=== PATIENT | female | born 1955 | race Caucasian/White ===

== ENCOUNTER 2021-07-18 14:56 | Inpatient (IN) | payer MEDICARE ==
[2021-07-19] MEDS ORDERED: MELATONIN 5 MG TAB PO PRN (22:10)
--- NOTE | 2021-07-20 09:36 | History and Physical Report ---
GP History & Physical - History of Present Illness Date of admission: 07/19/21 Date of Examination: 07/20/21 Reason for Admission: Danger to self, Failure of Outpatient Treatment, Severe anxiety/depression History of Present Illness: The patient was seen today. She is a 66y/o female who was admitted for depression, not eating or drinking and talking to people. During my evaluation of the patient, she is calm and cooperative. She has poor insight. She says her passed in April and she's been having a hard time dealing with it. She says she's been very depressed and not eating well. The patient then says "but I just don't know why I'm here." She is slightly tearful. She says she's sees a psychiatrist but she could not tell me her diagnoses or if she was on any meds. She denies SI/HI, but states "just real bad depressed." She denies hallucinations. The patient also denies any illicit drug use, alcohol or nicotine. The patient says she has two sons. She says she plans to live with them for a little while after discharge then go back to her own home. PAST PSYCHIATRIC HISTORY Diagnoses: could not recall Suicide attempts or Self-harm behavior: Denies Prior psychiatric hospitalizations: Denies Substance Abuse history: Denies Previous psychiatric medications tried: could not recall Outpatient treatment: Yes PAST MEDICAL HISTORY: Family Psychiatric History: Not available SOCIAL HISTORY Marital Status: Living Arrangements: Lives alone Employment Status: Retired Access to guns/weapons: None reported Education: History of Abuse: None reported Legal History: None reported REVIEW OF SYSTEMS Constitutional: Negative for weight loss ENT: Negative for stridor Respiratory: Negative for cough or hemoptysis All other systems reviewed and are negative MENTAL STATUS EXAMINATION General Appearance and Behavior: Age appropriate, good hygiene, wearing appropriate clothes, good eye contact, cooperative polite with questioning. Cooperation: Participating/engaged Psychomotor Behavior: unremarkable and within normal limits Mood: Depressed Affect and affective range: congruent with mood Thought Process: Goal oriented Thought Content: hopelessness Speech: Normal volume, Regular rate and rhythm Suicidal Ideation: Denies Homicidal Ideation: Denies Hallucinations: Visual guest experience captain, denies at present Impulse Control: Normal Insight and Judgment: Poor insight and good judgment Memory: Limited Attention: attentive Orientation: Alert, oriented 3 Assessment and Plan (1) Major depressive disorder Current Visit: Yes Status: Acute Treatment Plan Patient admitted for inpatient psychiatric evaluation, medication adjustment and close monitoring The patient's behavior, mood, sleep and appetite will be closely monitored. Patient enrolled in individual and group therapeutic sessions and encouraged to attend. Patient provided with a safe and structured environment. Patient's physical health needs will be addressed by the Hospitalist. Hospitalist Consulted Labs including CBC, CMP, Lipid profile and Hemoglobin A1C levels ordered for baseline reference Social Assessment will be completed and the Snath Handle Assembler will work with patient and family to ensure a suitable and safe disposition Medication adjustment will be made as clinically indicated Restarted home medications Usual Wellness Evangelical/Preservation: - Start Trazodone 50 mg po QHS & 50 mg po QHS PRN between 10 PM & 2 AM for insomnia - Start Melatonin 5 mg po QHS to promote circadian rhythm The patient agreed on the treatment plan, understood the risk, benefit, alternative treatment, potential consequence of no treatment, and gave informed consent. Estimated days: Post hospital care: primary care provider, psychiatric provider Case staffed with Dr. Spencer Legal Status: Voluntary Reaction to Hospitalization: Accepting Medications and Allergies Allergies Allergy/AdvReac Type Severity Reaction Status Date / Time No Known Allergies Allergy Verified 07/19/21 19:15 Home Medications Medication Instructions Recorded Confirmed Last Taken Type Amitriptyline [Elavil] 75 mg PO DAILY 07/19/21 07/19/21 Unknown History Carisoprodol [Soma] 350 mg PO 4XD 07/19/21 07/19/21 Unknown History Cyclobenzaprine [Flexeril] 10 mg PO TID PRN 07/19/21 07/19/21 Unknown History DULoxetine [Cymbalta] 60 mg PO QDAY 07/19/21 07/19/21 Unknown History Diclofenac Sodium 75 mg PO BID 07/19/21 07/19/21 Unknown History FLUoxetine [PROzac] 20 mg PO QDAY 07/19/21 07/19/21 Unknown History Levothyroxine [Synthroid] 112 mcg PO QAM 07/19/21 07/19/21 Unknown History Temazepam 30 mg PO HS PRN 07/19/21 07/19/21 Unknown History cephALEXin [Keflex] 500 mg PO Q8HR 07/19/21 07/19/21 Unknown History traMADoL [Ultram 50 MG tab] 50 mg PO BID PRN 07/19/21 07/19/21 Unknown History Active Meds: Active Medications Cephalexin (Cephalexin 500 Mg Cap) 500 mg PO Q8H [facility]; Protocol Melatonin (Melatonin 5 Mg Tab) 5 mg PO QHS PRN PRN Reason: Sleep Results - Results Labs/Vitals: Laboratory Last Values POC Glucose 72 mg/dL (70-105) 07/19/21 15:17 Last Vital Signs Temp 98.5 F 07/19/21 22:00 Pulse 88 07/19/21 22:00 Resp 18 07/19/21 09:15 BP 153/84 07/19/21 22:00 Pulse Ox 93 07/19/21 09:15 Physical Examination - Constitutional Vitals: Vital Signs Temp Pulse Resp BP Pulse Ox 98.5 F 88 18 153/84 93 07/19/21 22:00 07/19/21 22:00 07/19/21 09:15 07/19/21 22:00 07/19/21 09:15 Temperature -Last 24 Hours Temperature 98.5 F Mental Status Exam - Vital signs Last Vital Signs Temp 98.5 F 07/19/21 22:00 Pulse 88 07/19/21 22:00 Resp 18 07/19/21 09:15 BP 153/84 07/19/21 22:00 Pulse Ox 93 07/19/21 09:15 Physician Certification - Certification Statement Physician Certification Statement: This is an acknowledgement statement that ALEXA IZAGUIRRE is a 66 year old F who requires inpatient psychiatric admission for treatment which could reasonably be expected to improve the patient's condition for Estimated period of time patient will need to remain in the hospital: [ ] Plan for post-hospital care: [ ]
[2021-07-20] MEDS ORDERED: CYCLOBENZAPRINE 10 MG TAB PO PRN (09:40)
[2021-07-20] MEDS ORDERED: TEMAZEPAM 30 MG PO PRN (09:40)
[2021-07-20] MEDS: cephALEXin 500 MG CAP PO SCH ×2 (09:41→18:21)
[2021-07-20] MEDS ORDERED: AMITRIPTYLINE 75 MG PO SCH (10:00)
[2021-07-20] MEDS ORDERED: traMADol 50 MG TAB PO PRN (11:00)
[2021-07-20] MEDS ORDERED: DICLOFENAC DR 75 MG TAB PO SCH (11:00)
[2021-07-20] MEDS ORDERED: CARISOPRODOL 350 MG TAB PO SCH (11:00)
[2021-07-20] MEDS: AMITRIPTYLINE 25 MG TAB PO SCH (11:06)
[2021-07-20] MEDS: LEVOTHYROXINE 112 MCG TAB PO SCH (11:06)
[2021-07-20] MEDS: DULoxetine 30 MG CAP PO SCH (11:09)
[2021-07-20] MEDS: FLUoxetine 20 MG CAP PO SCH (11:09)
[2021-07-20] MEDS: DICLOFENAC DR 75 MG TAB PO PRN (11:19)
[2021-07-20] MEDS ORDERED: CARISOPRODOL 350 MG TAB PO PRN (12:00)
[2021-07-20] MEDS ORDERED: cephALEXin 500 MG CAP PO SCH (14:00)
[2021-07-21] MEDS: cephALEXin 500 MG CAP PO SCH ×3 (02:41→17:48)
[2021-07-21] MEDS: DULoxetine 30 MG CAP PO SCH (09:26)
[2021-07-21] MEDS: AMITRIPTYLINE 25 MG TAB PO SCH (09:27)
[2021-07-21] MEDS: FLUoxetine 20 MG CAP PO SCH (09:27)
[2021-07-21] MEDS: LEVOTHYROXINE 112 MCG TAB PO SCH (09:30)
--- NOTE | 2021-07-21 09:58 | Progress Note ---
Subjective Date of service: 07/21/21 Principal diagnosis: acute psychosis Subjective Comment: The patient was seen today. She is smiling and appears to be responding to internal stimuli. She denies hallucinations. She denies SI/HI. The patient says she slept well. The staff says the patient has been talking to herself. REVIEW OF SYSTEMS Constitutional: Negative for weight loss ENT: Negative for stridor Respiratory: Negative for cough or hemoptysis All other systems reviewed and are negative MENTAL STATUS EXAMINATION General Appearance and Behavior: Age appropriate, good hygiene, wearing appropriate clothes, good eye contact, cooperative polite with questioning. Cooperation: Participating/engaged Psychomotor Behavior: unremarkable and within normal limits Mood: Depressed Affect and affective range: congruent with mood Thought Process: Goal oriented Thought Content: hopelessness Speech: Normal volume, Regular rate and rhythm Suicidal Ideation: Denies Homicidal Ideation: Denies Hallucinations: Visual ocean clam boat captain, denies at present Impulse Control: Normal Insight and Judgment: Poor insight and good judgment Memory: Limited Attention: attentive Orientation: Alert, oriented 3 Assessment and Plan (1) Major depressive disorder Current Visit: Yes Status: Acute Treatment Plan Patient admitted for inpatient psychiatric evaluation, medication adjustment and close monitoring The patient's behavior, mood, sleep and appetite will be closely monitored. Patient enrolled in individual and group therapeutic sessions and encouraged to attend. Patient provided with a safe and structured environment. Patient's physical health needs will be addressed by the Hospitalist. Hospitalist Consulted Labs including CBC, CMP, Lipid profile and Hemoglobin A1C levels ordered for baseline reference Social Assessment will be completed and the Cage Shift Manager will work with patient and family to ensure a suitable and safe disposition Medication adjustment will be made as clinically indicated Start Olanzapine 2.5mg po daily Decrease Prozac 10mg po to prevent polypharm Usual Wellness Yarsani/Preservation: - Start Trazodone 50 mg po QHS & 50 mg po QHS PRN between 10 PM & 2 AM for insomnia - Start Melatonin 5 mg po QHS to promote circadian rhythm The patient agreed on the treatment plan, understood the risk, benefit, alternative treatment, potential consequence of no treatment, and gave informed consent. Estimated days: Post hospital care: primary care provider, psychiatric provider Case staffed with Dr. Spencer Medications and Allergies Allergies Allergy/AdvReac Type Severity Reaction Status Date / Time No Known Allergies Allergy Verified 07/19/21 19:15 Home Medications Medication Instructions Recorded Confirmed Last Taken Type Amitriptyline [Elavil] 75 mg PO DAILY 07/19/21 07/19/21 Unknown History Carisoprodol [Soma] 350 mg PO 4XD 07/19/21 07/19/21 Unknown History Cyclobenzaprine [Flexeril] 10 mg PO TID PRN 07/19/21 07/19/21 Unknown History DULoxetine [Cymbalta] 60 mg PO QDAY 07/19/21 07/19/21 Unknown History Diclofenac Sodium 75 mg PO BID 07/19/21 07/19/21 Unknown History FLUoxetine [PROzac] 20 mg PO QDAY 07/19/21 07/19/21 Unknown History Levothyroxine [Synthroid] 112 mcg PO QAM 07/19/21 07/19/21 Unknown History Temazepam 30 mg PO HS PRN 07/19/21 07/19/21 Unknown History cephALEXin [Keflex] 500 mg PO Q8HR 07/19/21 07/19/21 Unknown History traMADoL [Ultram 50 MG tab] 50 mg PO BID PRN 07/19/21 07/19/21 Unknown History Active Meds: Active Medications Amitriptyline HCl (Amitriptyline 25 Mg Tab) 75 mg PO DAILY [facility] Last Admin: 07/21/21 09:27 Dose: 75 mg Carisoprodol (Carisoprodol 350 Mg Tab) 350 mg PO 4XD PRN PRN Reason: Pain, Mild (1-3) Cephalexin (Cephalexin 500 Mg Cap) 500 mg PO Q8H [facility]; Protocol Stop: 07/25/21 02:01 Last Admin: 07/21/21 09:27 Dose: 500 mg Diclofenac Sodium (Diclofenac Dr 75 Mg Tab) 75 mg PO BID PRN PRN Reason: Pain, Mild (1-3) Last Admin: 07/20/21 11:19 Dose: 75 mg Duloxetine HCl (Duloxetine 30 Mg Cap) 60 mg PO QDAY [facility] Last Admin: 07/21/21 09:26 Dose: 60 mg Fluoxetine HCl (Fluoxetine 20 Mg Cap) 20 mg PO QDAY [facility] Last Admin: 07/21/21 09:27 Dose: 20 mg Levothyroxine Sodium (Levothyroxine 112 Mcg Tab) 112 mcg PO QAM [facility] Last Admin: 07/21/21 09:30 Dose: 112 mcg Melatonin (Melatonin 5 Mg Tab) 5 mg PO QHS PRN PRN Reason: Sleep Temazepam (Temazepam 15 Mg Cap) 30 mg PO QHS PRN PRN Reason: Sleep Tramadol HCl (Tramadol 50 Mg Tab) 50 mg PO BID PRN PRN Reason: Pain, Moderate (4-6) Results - Results Labs/Vitals: Laboratory Last Values POC Glucose 72 mg/dL (70-105) 07/19/21 15:17 Last Vital Signs Temp 99.0 F 07/21/21 08:54 Pulse 98 H 07/21/21 08:54 Resp 18 07/21/21 08:54 BP 120/60 07/21/21 08:54 Pulse Ox 93 07/21/21 08:54
[2021-07-21] MEDS: FLUoxetine 10 MG TAB PO SCH (11:05)
--- NOTE | 2021-07-21 11:41 | Consultation ---
History of Present Illness - Reason for Consult Consult date: 07/21/21 Medical Management Requesting physician: BOYD VUONG - History of Present Illness 66 YO Female with Vascular Dementia with Behavioral Disturbance, Cerebral Atherosclerosis, Obesity, GISEL, MDD admitted to [facility] for psychiatric stabilization. Consult placed with Dr. Vuong for medical management. Patient seen and evaluated in the recreation room. Patient denies fever, chills, chest pain, palpitation, productive cough, skin rash, recent contact, known exposure to COVID-19. Patient resting comfortably. No reported nursing events. Past History Past Medical History: hypertension Past Surgical History: cholecystectomy, hysterectomy Social history: single. denies: smoking, alcohol abuse, prescription drug abuse Family history: hypertension Medications and Allergies Allergies Allergy/AdvReac Type Severity Reaction Status Date / Time No Known Allergies Allergy Verified 07/19/21 19:15 Home Medications Medication Instructions Recorded Confirmed Last Taken Type Amitriptyline [Elavil] 75 mg PO DAILY 07/19/21 07/19/21 Unknown History Carisoprodol [Soma] 350 mg PO 4XD 07/19/21 07/19/21 Unknown History Cyclobenzaprine [Flexeril] 10 mg PO TID PRN 07/19/21 07/19/21 Unknown History DULoxetine [Cymbalta] 60 mg PO QDAY 07/19/21 07/19/21 Unknown History Diclofenac Sodium 75 mg PO BID 07/19/21 07/19/21 Unknown History FLUoxetine [PROzac] 20 mg PO QDAY 07/19/21 07/19/21 Unknown History Levothyroxine [Synthroid] 112 mcg PO QAM 07/19/21 07/19/21 Unknown History Temazepam 30 mg PO HS PRN 07/19/21 07/19/21 Unknown History cephALEXin [Keflex] 500 mg PO Q8HR 07/19/21 07/19/21 Unknown History traMADoL [Ultram 50 MG tab] 50 mg PO BID PRN 07/19/21 07/19/21 Unknown History Active Meds: Active Medications Amitriptyline HCl (Amitriptyline 25 Mg Tab) 75 mg PO DAILY [facility] Last Admin: 07/21/21 09:27 Dose: 75 mg Carisoprodol (Carisoprodol 350 Mg Tab) 350 mg PO 4XD PRN PRN Reason: Pain, Mild (1-3) Cephalexin (Cephalexin 500 Mg Cap) 500 mg PO Q8H [facility]; Protocol Stop: 07/25/21 02:01 Last Admin: 07/21/21 09:27 Dose: 500 mg Diclofenac Sodium (Diclofenac Dr 75 Mg Tab) 75 mg PO BID PRN PRN Reason: Pain, Mild (1-3) Last Admin: 07/20/21 11:19 Dose: 75 mg Duloxetine HCl (Duloxetine 30 Mg Cap) 60 mg PO QDAY [facility] Last Admin: 07/21/21 09:26 Dose: 60 mg Fluoxetine HCl (Fluoxetine 10 Mg Tab) 10 mg PO QDAY [facility] Last Admin: 07/21/21 11:05 Dose: Not Given Levothyroxine Sodium (Levothyroxine 112 Mcg Tab) [facility] Last Admin: 07/21/21 09:30 Dose: 112 mcg Melatonin (Melatonin 5 Mg Tab) 5 mg PO QHS PRN PRN Reason: Sleep Olanzapine (Olanzapine 2.5 Mg Tab) 2.5 mg PO QDAY [facility] Last Admin: 07/21/21 11:04 Dose: 2.5 mg Temazepam (Temazepam 15 Mg Cap) 30 mg PO QHS PRN PRN Reason: Sleep Tramadol HCl (Tramadol 50 Mg Tab) 50 mg PO BID PRN PRN Reason: Pain, Moderate (4-6) Review of Systems Constitutional: no weight loss, no weight gain, no fever, no chills Ears, nose, mouth and throat: no ear pain, no ear discharge, no decreased he aring, no nose pain, no nasal congestion Breasts: no change in shape, no swelling Cardiovascular: no chest pain, no orthopnea, no palpitations, no edema, no syncope Respiratory: no cough, no excessive sputum, no shortness of breath Gastrointestinal: no abdominal pain, no nausea, no diarrhea, no constipation, no change in bowel habits, no hematemesis Genitourinary Female: no pelvic pain, no flank pain, no dysuria, no urinary frequency, no urgency Rectal: no pain, no incontinence, no bleeding Musculoskeletal: no neck stiffness, no arm numbness/tingling, no shooting leg pain, no redness of joints Integumentary: no rash, no pruritis, no redness, no wounds, no jaundice Neurological: no head injury, no paralysis, no parathesias, no tingling, no seizures, no syncope Psychiatric: anxiety, depression, anxiety attacks, sadness/tearfullness, mood sw ings Endocrine: no cold intolerance, no polyphagia, no excessive thirst, no polyuria Hematologic/Lymphatic: no easy bruising, no easy bleeding Allergic/Immunologic: no urticaria, no allergic rhinitis, no wheezing Exam - Constitutional Vitals: Temp Pulse Resp BP Pulse Ox 99.0 F 98 H 18 120/60 93 07/21/21 08:54 07/21/21 08:54 07/21/21 08:54 07/21/21 08:54 07/21/21 08:54 General appearance: Present: no acute distress, obese - EENT Eyes: Present: PERRL ENT: clear oral mucosa, hearing decreased - Neck Neck: Present: supple, normal ROM - Respiratory Respiratory effort: normal Respiratory: bilateral: CTA - Cardiovascular Heart Sounds: Present: S1 & S2. Absent: rub, click - Extremities Extremities: pulses symmetrical, No edema Peripheral Pulses: within normal limits - Abdominal General gastrointestinal: Present: soft, non-tender, non-distended, normal bowel sounds Female genitourinary: Present: normal - Integumentary Integumentary: Present: clear, warm, dry - Musculoskeletal Musculoskeletal: gait normal, strength equal bilaterally - Psychiatric Psychiatric: appropriate mood/affect, intact judgment & insight - Neurologic Neurologic: CNII-XII intact, moves all extremities Results - Labs CBC & Chem 7: 07/23/21 00:04 07/23/21 00:04 Assessment and Plan - Patient Problems (1) Vascular dementia with behavioral disturbance Current Visit: Yes Status: Acute (2) Cerebral atherosclerosis Current Visit: Yes Status: Acute (3) Hypertension Current Visit: Yes Status: Acute (4) Obesity Current Visit: Yes Status: Acute (5) Anxiety Current Visit: Yes Status: Acute (6) Advance care planning Current Visit: Yes Status: Acute
[2021-07-22] MEDS: cephALEXin 500 MG CAP PO SCH ×3 (02:26→17:49)
--- NOTE | 2021-07-22 08:47 | Progress Note ---
Subjective Date of service: 07/22/21 Principal diagnosis: acute psychosis Subjective Comment: The patient was seen today. She is smiling. She denies hallucinations. She says she's no longer talking to her . She denies SI/HI. Staff states the patient is observed laughing inappropriately at times, so the patient could be hallucinating. REVIEW OF SYSTEMS Constitutional: Negative for weight loss ENT: Negative for stridor Respiratory: Negative for cough or hemoptysis All other systems reviewed and are negative MENTAL STATUS EXAMINATION General Appearance and Behavior: Age appropriate, good hygiene, wearing appropriate clothes, good eye contact, cooperative polite with questioning. Cooperation: Participating/engaged Psychomotor Behavior: unremarkable and within normal limits Mood: Depressed Affect and affective range: congruent with mood Thought Process: Goal oriented Thought Content: hopelessness Speech: Normal volume, Regular rate and rhythm Suicidal Ideation: Denies Homicidal Ideation: Denies Hallucinations: Visual procurement consultant, denies at present Impulse Control: Normal Insight and Judgment: Poor insight and good judgment Memory: Limited Attention: attentive Orientation: Alert, oriented 3 Assessment and Plan (1) Major depressive disorder Current Visit: Yes Status: Acute Treatment Plan Patient admitted for inpatient psychiatric evaluation, medication adjustment and close monitoring The patient's behavior, mood, sleep and appetite will be closely monitored. Patient enrolled in individual and group therapeutic sessions and encouraged to attend. Patient provided with a safe and structured environment. Patient's physical health needs will be addressed by the Hospitalist. Hospitalist Consulted Labs including CBC, CMP, Lipid profile and Hemoglobin A1C levels ordered for baseline reference Social Assessment will be completed and the Detail Drafter will work with patient and family to ensure a suitable and safe disposition Medication adjustment will be made as clinically indicated Increase Olanzapine 5mg po daily Decrease Prozac 10mg po to prevent polypharm yesterday Usual Wellness Christian/Preservation: - Start Trazodone 50 mg po QHS & 50 mg po QHS PRN between 10 PM & 2 AM for insomnia - Start Melatonin 5 mg po QHS to promote circadian rhythm The patient agreed on the treatment plan, understood the risk, benefit, alternative treatment, potential consequence of no treatment, and gave informed consent. Estimated days: Post hospital care: primary care provider, psychiatric provider Case staffed with Dr. Spencer Medications and Allergies Allergies Allergy/AdvReac Type Severity Reaction Status Date / Time No Known Allergies Allergy Verified 07/19/21 19:15 Home Medications Medication Instructions Recorded Confirmed Last Taken Type Amitriptyline [Elavil] 75 mg PO DAILY 07/19/21 07/19/21 Unknown History Carisoprodol [Soma] 350 mg PO 4XD 07/19/21 07/19/21 Unknown History Cyclobenzaprine [Flexeril] 10 mg PO TID PRN 07/19/21 07/19/21 Unknown History DULoxetine [Cymbalta] 60 mg PO QDAY 07/19/21 07/19/21 Unknown History Diclofenac Sodium 75 mg PO BID 07/19/21 07/19/21 Unknown History FLUoxetine [PROzac] 20 mg PO QDAY 07/19/21 07/19/21 Unknown History Levothyroxine [Synthroid] 112 mcg PO QAM 07/19/21 07/19/21 Unknown History Temazepam 30 mg PO HS PRN 07/19/21 07/19/21 Unknown History cephALEXin [Keflex] 500 mg PO Q8HR 07/19/21 07/19/21 Unknown History traMADoL [Ultram 50 MG tab] 50 mg PO BID PRN 07/19/21 07/19/21 Unknown History Active Meds: Active Medications Amitriptyline HCl (Amitriptyline 25 Mg Tab) 75 mg PO DAILY [facility] Last Admin: 07/21/21 09:27 Dose: 75 mg Carisoprodol (Carisoprodol 350 Mg Tab) 350 mg PO 4XD PRN PRN Reason: Pain, Mild (1-3) Cephalexin (Cephalexin 500 Mg Cap) 500 mg PO Q8H [facility]; Protocol Stop: 07/25/21 02:01 Last Admin: 07/22/21 02:26 Dose: 500 mg Diclofenac Sodium (Diclofenac Dr 75 Mg Tab) 75 mg PO BID PRN PRN Reason: Pain, Mild (1-3) Last Admin: 07/20/21 11:19 Dose: 75 mg Duloxetine HCl (Duloxetine 30 Mg Cap) 60 mg PO QDAY [facility] Last Admin: 07/21/21 09:26 Dose: 60 mg Fluoxetine HCl (Fluoxetine 10 Mg Tab) 10 mg PO QDAY [facility] Last Admin: 07/21/21 11:05 Dose: Not Given Levothyroxine Sodium (Levothyroxine 112 Mcg Tab) 112 mcg PO QAM [facility] Last Admin: 07/21/21 09:30 Dose: 112 mcg Melatonin (Melatonin 5 Mg Tab) 5 mg PO QHS PRN PRN Reason: Sleep Olanzapine (Olanzapine 2.5 Mg Tab) 2.5 mg PO QDAY [facility] Last Admin: 07/21/21 11:04 Dose: 2.5 mg Temazepam (Temazepam 15 Mg Cap) 30 mg PO QHS PRN PRN Reason: Sleep Tramadol HCl (Tramadol 50 Mg Tab) 50 mg PO BID PRN PRN Reason: Pain, Moderate (4-6) Results - Results Labs/Vitals: Laboratory Last Values POC Glucose 72 mg/dL (70-105) 07/19/21 15:17 Last Vital Signs Temp 99.0 F 07/21/21 08:54 Pulse 78 07/21/21 22:25 Resp 18 07/21/21 08:54 BP 120/60 07/21/21 08:54 Pulse Ox 92 07/21/21 22:25
[2021-07-22] MEDS: AMITRIPTYLINE 25 MG TAB PO SCH (09:09)
[2021-07-22] MEDS: LEVOTHYROXINE 112 MCG TAB PO SCH (09:10)
[2021-07-22] MEDS: DULoxetine 30 MG CAP PO SCH (09:10)
[2021-07-22] MEDS: FLUoxetine 10 MG TAB PO SCH (09:10)
[2021-07-22] MEDS: DICLOFENAC DR 75 MG TAB PO PRN (09:18)
[2021-07-22] MEDS: TEMAZEPAM 15 MG CAP PO PRN (21:49)
[2021-07-23 00:50] LABS: Basophils # (Auto) 0.1 K/mm3 (0.0-0.1); Eosinophils # (Auto) 0.6 K/mm3 (0.0-0.4); Eosinophils % (Auto) 6.5 % (0.0-4.3); Hematocrit 35.3 % (30.3-42.9); Hemoglobin 11.6 gm/dl (10.1-14.3); Lymphocytes # (Auto) 2.3 K/mm3 (1.2-5.4); Lymphocytes % (Auto) 24.1 % (13.4-35.0); Mean Corpuscular HGB Conc 33 % (30-34); Mean Corpuscular Volume 90 fl (79-97); Monocytes # (Auto) 0.9 K/mm3 (0.0-0.8); Monocytes % (Auto) 9.7 % (0.0-7.3); Platelet Count 406 K/mm3 (140-440); Red Blood Count 3.92 M/mm3 (3.65-5.03); Red Cell Distribution Width 14.1 % (13.2-15.2)
[2021-07-23 02:51] LABS: Chol/HDL Ratio 2.84 %; HDL Cholesterol 64 mg/dL (40-59); LDL Cholesterol,Direct 99 mg/dL (50-130)
[2021-07-23 03:42] LABS: Alanine Aminotransferase 12 units/L (7-56); Albumin 3.5 g/dL (3.9-5); BUN/Creatinine Ratio 19; Blood Urea Nitrogen 17 mg/dL (7-17); Hemolysis Index 9
[2021-07-23] MEDS: cephALEXin 500 MG CAP PO SCH ×3 (05:05→17:08)
[2021-07-23] MEDS: FLUoxetine 10 MG TAB PO SCH (09:01)
[2021-07-23] MEDS: LEVOTHYROXINE 112 MCG TAB PO SCH (09:01)
[2021-07-23] MEDS: DULoxetine 30 MG CAP PO SCH (09:01)
[2021-07-23] MEDS: AMITRIPTYLINE 25 MG TAB PO SCH (09:02)
--- NOTE | 2021-07-23 10:24 | Progress Note ---
Subjective Date of service: 07/23/21 Principal diagnosis: acute psychosis Subjective Comment: The patient was seen today. She is smiling. She is responding to internal stimuli, although she denies hallucinations. Staff also reports observing the patient talking to herself. She denies SI/HI REVIEW OF SYSTEMS Constitutional: Negative for weight loss ENT: Negative for stridor Respiratory: Negative for cough or hemoptysis All other systems reviewed and are negative MENTAL STATUS EXAMINATION General Appearance and Behavior: Age appropriate, good hygiene, wearing appropriate clothes, good eye contact, cooperative polite with questioning. Cooperation: Participating/engaged Psychomotor Behavior: unremarkable and within normal limits Mood: Depressed Affect and affective range: congruent with mood Thought Process: Goal oriented Thought Content: hopelessness Speech: Normal volume, Regular rate and rhythm Suicidal Ideation: Denies Homicidal Ideation: Denies Hallucinations: Auditory Impulse Control: Normal Insight and Judgment: Poor insight and good judgment Memory: Limited Attention: attentive Orientation: Alert, oriented 3 Assessment and Plan (1) Major depressive disorder Current Visit: Yes Status: Acute Treatment Plan Patient admitted for inpatient psychiatric evaluation, medication adjustment and close monitoring The patient's behavior, mood, sleep and appetite will be closely monitored. Patient enrolled in individual and group therapeutic sessions and encouraged to attend. Patient provided with a safe and structured environment. Patient's physical health needs will be addressed by the Hospitalist. Hospitalist Consulted Labs including CBC, CMP, Lipid profile and Hemoglobin A1C levels ordered for baseline reference Social Assessment will be completed and the Circular Head Saw Operator will work with patient and family to ensure a suitable and safe disposition Medication adjustment will be made as clinically indicated Increase Olanzapine 7.5mg po daily weaned off Prozac 10mg po to prevent polypharm Usual Wellness Gnosticism/Preservation: - Start Trazodone 50 mg po QHS & 50 mg po QHS PRN between 10 PM & 2 AM for insomnia - Start Melatonin 5 mg po QHS to promote circadian rhythm The patient agreed on the treatment plan, understood the risk, benefit, alternative treatment, potential consequence of no treatment, and gave informed consent. Estimated days: Post hospital care: primary care provider, psychiatric provider Case staffed with Dr. Spencer Medications and Allergies Allergies Allergy/AdvReac Type Severity Reaction Status Date / Time No Known Allergies Allergy Verified 07/19/21 19:15 Home Medications Medication Instructions Recorded Confirmed Last Taken Type Amitriptyline [Elavil] 75 mg PO DAILY 07/19/21 07/19/21 Unknown History Carisoprodol [Soma] 350 mg PO 4XD 07/19/21 07/19/21 Unknown History Cyclobenzaprine [Flexeril] 10 mg PO TID PRN 07/19/21 07/19/21 Unknown History DULoxetine [Cymbalta] 60 mg PO QDAY 07/19/21 07/19/21 Unknown History Diclofenac Sodium 75 mg PO BID 07/19/21 07/19/21 Unknown History FLUoxetine [PROzac] 20 mg PO QDAY 07/19/21 07/19/21 Unknown History Levothyroxine [Synthroid] 112 mcg PO QAM 07/19/21 07/19/21 Unknown History Temazepam 30 mg PO HS PRN 07/19/21 07/19/21 Unknown History cephALEXin [Keflex] 500 mg PO Q8HR 07/19/21 07/19/21 Unknown History traMADoL [Ultram 50 MG tab] 50 mg PO BID PRN 07/19/21 07/19/21 Unknown History Active Meds: Active Medications Amitriptyline HCl (Amitriptyline 25 Mg Tab) 75 mg PO DAILY [facility] Last Admin: 07/23/21 09:02 Dose: 75 mg Carisoprodol (Carisoprodol 350 Mg Tab) 350 mg PO 4XD PRN PRN Reason: Pain, Mild (1-3) Cephalexin (Cephalexin 500 Mg Cap) 500 mg PO Q8H [facility]; Protocol Stop: 07/25/21 02:01 Last Admin: 07/23/21 09:01 Dose: 500 mg Diclofenac Sodium (Diclofenac Dr 75 Mg Tab) 75 mg PO BID PRN PRN Reason: Pain, Mild (1-3) Last Admin: 07/22/21 09:18 Dose: 75 mg Duloxetine HCl (Duloxetine 30 Mg Cap) 60 mg PO QDAY [facility] Last Admin: 07/23/21 09:01 Dose: 60 mg Fluoxetine HCl (Fluoxetine 10 Mg Tab) 10 mg PO QDAY [facility] Last Admin: 07/23/21 09:01 Dose: 10 mg Levothyroxine Sodium (Levothyroxine 112 Mcg Tab) 112 mcg PO QAM [facility] Last Admin: 07/23/21 09:01 Dose: 112 mcg Melatonin (Melatonin 5 Mg Tab) 5 mg PO QHS PRN PRN Reason: Sleep Olanzapine (Olanzapine 5 Mg Tab) 5 mg PO QDAY [facility] Last Admin: 07/23/21 09:02 Dose: 5 mg Temazepam (Temazepam 15 Mg Cap) 30 mg PO QHS PRN PRN Reason: Sleep Last Admin: 07/22/21 21:49 Dose: 30 mg Tramadol HCl (Tramadol 50 Mg Tab) 50 mg PO BID PRN PRN Reason: Pain, Moderate (4-6) Results - Results Labs/Vitals: Laboratory Last Values WBC 9.6 K/mm3 (4.5-11.0) 07/23/21 00:04 RBC 3.92 M/mm3 (3.65-5.03) 07/23/21 00:04 Hgb 11.6 gm/dl (10.1-14.3) 07/23/21 00:04 Hct 35.3 % (30.3-42.9) 07/23/21 00:04 MCV 90 fl (79-97) 07/23/21 00:04 MCH 30 pg (28-32) 07/23/21 00:04 MCHC 33 % (30-34) 07/23/21 00:04 RDW 14.1 % (13.2-15.2) 07/23/21 00:04 Plt Count 406 K/mm3 (140-440) 07/23/21 00:04 Lymph % (Auto) 24.1 % (13.4-35.0) 07/23/21 00:04 [place] % (Auto) 9.7 % (0.0-7.3) H 07/23/21 00:04 Eos % (Auto) 6.5 % (0.0-4.3) H 07/23/21 00:04 Baso % (Auto) 1.0 % (0.0-1.8) 07/23/21 00:04 Lymph # (Auto) 2.3 K/mm3 (1.2-5.4) 07/23/21 00:04 [place] # (Auto) 0.9 K/mm3 (0.0-0.8) H 07/23/21 00:04 Eos # (Auto) 0.6 K/mm3 (0.0-0.4) H 07/23/21 00:04 Baso # (Auto) 0.1 K/mm3 (0.0-0.1) 07/23/21 00:04 Seg Neutrophils % 58.7 % (40.0-70.0) 07/23/21 00:04 Seg Neutrophils # 5.6 K/mm3 (1.8-7.7) 07/23/21 00:04 Sodium 138 mmol/L (137-145) 07/23/21 00:04 Potassium 4.9 mmol/L (3.6-5.0) 07/23/21 00:04 Chloride 100.1 mmol/L (98-107) 07/23/21 00:04 Carbon Dioxide 21 mmol/L (22-30) L 07/23/21 00:04 Anion Gap 22 mmol/L 07/23/21 00:04 BUN 17 mg/dL (7-17) 07/23/21 00:04 Creatinine 0.9 mg/dL (0.6-1.2) 07/23/21 00:04 Estimated GFR > 60 ml/min 07/23/21 00:04 BUN/Creatinine Ratio 19 % 07/23/21 00:04 Glucose 94 mg/dL (65-100) 07/23/21 00:04 POC Glucose 72 mg/dL (70-105) 07/19/21 15:17 Hemoglobin A1c 5.1 % (4-6) 07/23/21 00:04 Calcium 9.0 mg/dL (8.4-10.2) 07/23/21 00:04 Total Bilirubin < 0.20 mg/dL (0.1-1.2) 07/23/21 00:04 AST 13 units/L (5-40) 07/23/21 00:04 ALT 12 units/L (7-56) 07/23/21 00:04 Alkaline Phosphatase 88 units/L (35-129) 07/23/21 00:04 Total Protein 6.5 g/dL (6.3-8.2) 07/23/21 00:04 Albumin 3.5 g/dL (3.9-5) L 07/23/21 00:04 Albumin/Globulin Ratio 1.2 % 07/23/21 00:04 Triglycerides 89 mg/dL (2-149) 07/23/21 00:04 Cholesterol 182 mg/dL (50-199) 07/23/21 00:04 LDL Cholesterol Direct 99 mg/dL (50-130) 07/23/21 00:04 HDL Cholesterol 64 mg/dL (40-59) H 07/23/21 00:04 Cholesterol/HDL Ratio 2.84 % 07/23/21 00:04 TSH 9.340 mlU/mL (0.270-4.200) H 07/23/21 00:04 Last Vital Signs Temp 98.6 F 07/22/21 20:50 Pulse 79 07/22/21 20:50 Resp 16 07/22/21 20:50 BP 133/75 07/22/21 20:50 Pulse Ox 95 07/22/21 20:50
[2021-07-23] MEDS: TEMAZEPAM 15 MG CAP PO PRN (21:15)
[2021-07-24] MEDS: cephALEXin 500 MG CAP PO SCH ×3 (01:32→17:00)
[2021-07-24] MEDS: DULoxetine 30 MG CAP PO SCH (09:06)
[2021-07-24] MEDS: LEVOTHYROXINE 112 MCG TAB PO SCH (09:06)
[2021-07-24] MEDS: AMITRIPTYLINE 25 MG TAB PO SCH (09:07)
--- NOTE | 2021-07-24 09:09 | Progress Note ---
Subjective Date of service: 07/24/21 Principal diagnosis: acute psychosis Subjective Comment: The patient was seen today. She says she is starting to feel better, but endorses still hearing the voice of her . She says "but not as bad." She denies SI/HI. REVIEW OF SYSTEMS Constitutional: Negative for weight loss ENT: Negative for stridor Respiratory: Negative for cough or hemoptysis All other systems reviewed and are negative MENTAL STATUS EXAMINATION General Appearance and Behavior: Age appropriate, good hygiene, wearing appropriate clothes, good eye contact, cooperative polite with questioning. Cooperation: Participating/engaged Psychomotor Behavior: unremarkable and within normal limits Mood: Depressed Affect and affective range: congruent with mood Thought Process: Goal oriented Thought Content: hopelessness Speech: Normal volume, Regular rate and rhythm Suicidal Ideation: Denies Homicidal Ideation: Denies Hallucinations: Auditory Impulse Control: Normal Insight and Judgment: Poor insight and good judgment Memory: Limited Attention: attentive Orientation: Alert, oriented 3 Assessment and Plan (1) Major depressive disorder Current Visit: Yes Status: Acute Treatment Plan Patient admitted for inpatient psychiatric evaluation, medication adjustment and close monitoring The patient's behavior, mood, sleep and appetite will be closely monitored. Patient enrolled in individual and group therapeutic sessions and encouraged to attend. Patient provided with a safe and structured environment. Patient's physical health needs will be addressed by the Hospitalist. Hospitalist Consulted Labs including CBC, CMP, Lipid profile and Hemoglobin A1C levels ordered for baseline reference Social Assessment will be completed and the Baseball Pitcher will work with patient and family to ensure a suitable and safe disposition Medication adjustment will be made as clinically indicated Increase Olanzapine 10mg po daily weaned off Prozac 10mg po to prevent polypharm yesterday Usual Wellness Episcopalian/Preservation: - Start Trazodone 50 mg po QHS & 50 mg po QHS PRN between 10 PM & 2 AM for insomnia - Start Melatonin 5 mg po QHS to promote circadian rhythm The patient agreed on the treatment plan, understood the risk, benefit, alternative treatment, potential consequence of no treatment, and gave informed consent. Estimated days: Post hospital care: primary care provider, psychiatric provider Case staffed with Dr. Spencer Medications and Allergies Allergies Allergy/AdvReac Type Severity Reaction Status Date / Time No Known Allergies Allergy Verified 07/19/21 19:15 Home Medications Medication Instructions Recorded Confirmed Last Taken Type Amitriptyline [Elavil] 75 mg PO DAILY 07/19/21 07/19/21 Unknown History Carisoprodol [Soma] 350 mg PO 4XD 07/19/21 07/19/21 Unknown History Cyclobenzaprine [Flexeril] 10 mg PO TID PRN 07/19/21 07/19/21 Unknown History DULoxetine [Cymbalta] 60 mg PO QDAY 07/19/21 07/19/21 Unknown History Diclofenac Sodium 75 mg PO BID 07/19/21 07/19/21 Unknown History FLUoxetine [PROzac] 20 mg PO QDAY 07/19/21 07/19/21 Unknown History Levothyroxine [Synthroid] 112 mcg PO QAM 07/19/21 07/19/21 Unknown History Temazepam 30 mg PO HS PRN 07/19/21 07/19/21 Unknown History cephALEXin [Keflex] 500 mg PO Q8HR 07/19/21 07/19/21 Unknown History traMADoL [Ultram 50 MG tab] 50 mg PO BID PRN 07/19/21 07/19/21 Unknown History Active Meds: Active Medications Amitriptyline HCl (Amitriptyline 25 Mg Tab) 75 mg PO DAILY [facility] Last Admin: 07/24/21 09:07 Dose: 75 mg Carisoprodol (Carisoprodol 350 Mg Tab) 350 mg PO 4XD PRN PRN Reason: Pain, Mild (1-3) Cephalexin (Cephalexin 500 Mg Cap) 500 mg PO Q8H [facility]; Protocol Stop: 07/25/21 02:01 Last Admin: 07/24/21 09:06 Dose: 500 mg Diclofenac Sodium (Diclofenac Dr 75 Mg Tab) 75 mg PO BID PRN PRN Reason: Pain, Mild (1-3) Last Admin: 07/22/21 09:18 Dose: 75 mg Duloxetine HCl (Duloxetine 30 Mg Cap) 60 mg PO QDAY [facility] Last Admin: 07/24/21 09:06 Dose: 60 mg Levothyroxine Sodium (Levothyroxine 112 Mcg Tab) 112 mcg PO QAM [facility] Last Admin: 07/24/21 09:06 Dose: 112 mcg Melatonin (Melatonin 5 Mg Tab) 5 mg PO QHS PRN PRN Reason: Sleep Olanzapine (Olanzapine 7.5 Mg Tab) 7.5 mg PO QDAY [facility] Last Admin: 07/24/21 09:06 Dose: 7.5 mg Temazepam (Temazepam 15 Mg Cap) 30 mg PO QHS PRN PRN Reason: Sleep Last Admin: 07/23/21 21:15 Dose: 30 mg Tramadol HCl (Tramadol 50 Mg Tab) 50 mg PO BID PRN PRN Reason: Pain, Moderate (4-6) Results - Results Labs/Vitals: Laboratory Last Values WBC 9.6 K/mm3 (4.5-11.0) 07/23/21 00:04 RBC 3.92 M/mm3 (3.65-5.03) 07/23/21 00:04 Hgb 11.6 gm/dl (10.1-14.3) 07/23/21 00:04 Hct 35.3 % (30.3-42.9) 07/23/21 00:04 MCV 90 fl (79-97) 07/23/21 00:04 MCH 30 pg (28-32) 07/23/21 00:04 MCHC 33 % (30-34) 07/23/21 00:04 RDW 14.1 % (13.2-15.2) 07/23/21 00:04 Plt Count 406 K/mm3 (140-440) 07/23/21 00:04 Lymph % (Auto) 24.1 % (13.4-35.0) 07/23/21 00:04 [place] % (Auto) 9.7 % (0.0-7.3) H 07/23/21 00:04 Eos % (Auto) 6.5 % (0.0-4.3) H 07/23/21 00:04 Baso % (Auto) 1.0 % (0.0-1.8) 07/23/21 00:04 Lymph # (Auto) 2.3 K/mm3 (1.2-5.4) 07/23/21 00:04 [place] # (Auto) 0.9 K/mm3 (0.0-0.8) H 07/23/21 00:04 Eos # (Auto) 0.6 K/mm3 (0.0-0.4) H 07/23/21 00:04 Baso # (Auto) 0.1 K/mm3 (0.0-0.1) 07/23/21 00:04 Seg Neutrophils % 58.7 % (40.0-70.0) 07/23/21 00:04 Seg Neutrophils # 5.6 K/mm3 (1.8-7.7) 07/23/21 00:04 Sodium 138 mmol/L (137-145) 07/23/21 00:04 Potassium 4.9 mmol/L (3.6-5.0) 07/23/21 00:04 Chloride 100.1 mmol/L (98-107) 07/23/21 00:04 Carbon Dioxide 21 mmol/L (22-30) L 07/23/21 00:04 Anion Gap 22 mmol/L 07/23/21 00:04 BUN 17 mg/dL (7-17) 07/23/21 00:04 Creatinine 0.9 mg/dL (0.6-1.2) 07/23/21 00:04 Estimated GFR > 60 ml/min 07/23/21 00:04 BUN/Creatinine Ratio 19 % 07/23/21 00:04 Glucose 94 mg/dL (65-100) 07/23/21 00:04 POC Glucose 72 mg/dL (70-105) 07/19/21 15:17 Hemoglobin A1c 5.1 % (4-6) 07/23/21 00:04 Calcium 9.0 mg/dL (8.4-10.2) 07/23/21 00:04 Total Bilirubin < 0.20 mg/dL (0.1-1.2) 07/23/21 00:04 AST 13 units/L (5-40) 07/23/21 00:04 ALT 12 units/L (7-56) 07/23/21 00:04 Alkaline Phosphatase 88 units/L (35-129) 07/23/21 00:04 Total Protein 6.5 g/dL (6.3-8.2) 07/23/21 00:04 Albumin 3.5 g/dL (3.9-5) L 07/23/21 00:04 Albumin/Globulin Ratio 1.2 % 07/23/21 00:04 Triglycerides 89 mg/dL (2-149) 07/23/21 00:04 Cholesterol 182 mg/dL (50-199) 07/23/21 00:04 LDL Cholesterol Direct 99 mg/dL (50-130) 07/23/21 00:04 HDL Cholesterol 64 mg/dL (40-59) H 07/23/21 00:04 Cholesterol/HDL Ratio 2.84 % 07/23/21 00:04 TSH 9.340 mlU/mL (0.270-4.200) H 07/23/21 00:04 Last Vital Signs Temp 97.7 F 07/23/21 19:21 Pulse 75 07/23/21 19:21 Resp 17 07/23/21 19:21 BP 145/82 07/23/21 19:21 Pulse Ox 97 07/23/21 19:21
[2021-07-24] MEDS: TEMAZEPAM 15 MG CAP PO PRN (23:10)
[2021-07-25] MEDS: cephALEXin 500 MG CAP PO SCH (02:00)
[2021-07-25] MEDS: AMITRIPTYLINE 25 MG TAB PO SCH (09:10)
[2021-07-25] MEDS: DULoxetine 30 MG CAP PO SCH (09:11)
[2021-07-25] MEDS: LEVOTHYROXINE 112 MCG TAB PO SCH (09:11)
--- NOTE | 2021-07-25 09:22 | Progress Note ---
Subjective Date of service: 07/25/21 Principal diagnosis: acute psychosis Subjective Comment: The patient was seen today. She appears to doing better. The patient says she's no longer hearing the voices. She says "all that has passed." She denies SI/HI. She says "I feel wonderful." Will continue to treat and monitor the patient for a couple of more days. REVIEW OF SYSTEMS Constitutional: Negative for weight loss ENT: Negative for stridor Respiratory: Negative for cough or hemoptysis All other systems reviewed and are negative MENTAL STATUS EXAMINATION General Appearance and Behavior: Age appropriate, good hygiene, wearing appropriate clothes, good eye contact, cooperative polite with questioning. Cooperation: Participating/engaged Psychomotor Behavior: unremarkable and within normal limits Mood: Depressed Affect and affective range: congruent with mood Thought Process: Goal oriented Thought Content: hopelessness Speech: Normal volume, Regular rate and rhythm Suicidal Ideation: Denies Homicidal Ideation: Denies Hallucinations: Auditory Impulse Control: Normal Insight and Judgment: Poor insight and good judgment Memory: Limited Attention: attentive Orientation: Alert, oriented 3 Assessment and Plan (1) Major depressive disorder Current Visit: Yes Status: Acute Treatment Plan Patient admitted for inpatient psychiatric evaluation, medication adjustment and close monitoring The patient's behavior, mood, sleep and appetite will be closely monitored. Patient enrolled in individual and group therapeutic sessions and encouraged to attend. Patient provided with a safe and structured environment. Patient's physical health needs will be addressed by the Hospitalist. Hospitalist Consulted Labs including CBC, CMP, Lipid profile and Hemoglobin A1C levels ordered for baseline reference Social Assessment will be completed and the Contract Post Office Clerk will work with patient and family to ensure a suitable and safe disposition Medication adjustment will be made as clinically indicated Increase Olanzapine 10mg po daily yesterday Usual Wellness Adventism/Preservation: - Start Trazodone 50 mg po QHS & 50 mg po QHS PRN between 10 PM & 2 AM for insomnia - Start Melatonin 5 mg po QHS to promote circadian rhythm The patient agreed on the treatment plan, understood the risk, benefit, alternative treatment, potential consequence of no treatment, and gave informed consent. Estimated days: Post hospital care: primary care provider, psychiatric provider Case staffed with Dr. Spencer Medications and Allergies Allergies Allergy/AdvReac Type Severity Reaction Status Date / Time No Known Allergies Allergy Verified 07/19/21 19:15 Home Medications Medication Instructions Recorded Confirmed Last Taken Type Amitriptyline [Elavil] 75 mg PO DAILY 07/19/21 07/19/21 Unknown History Carisoprodol [Soma] 350 mg PO 4XD 07/19/21 07/19/21 Unknown History Cyclobenzaprine [Flexeril] 10 mg PO TID PRN 07/19/21 07/19/21 Unknown History DULoxetine [Cymbalta] 60 mg PO QDAY 07/19/21 07/19/21 Unknown History Diclofenac Sodium 75 mg PO BID 07/19/21 07/19/21 Unknown History FLUoxetine [PROzac] 20 mg PO QDAY 07/19/21 07/19/21 Unknown History Levothyroxine [Synthroid] 112 mcg PO QAM 07/19/21 07/19/21 Unknown History Temazepam 30 mg PO HS PRN 07/19/21 07/19/21 Unknown History cephALEXin [Keflex] 500 mg PO Q8HR 07/19/21 07/19/21 Unknown History traMADoL [Ultram 50 MG tab] 50 mg PO BID PRN 07/19/21 07/19/21 Unknown History Active Meds: Active Medications Amitriptyline HCl (Amitriptyline 25 Mg Tab) 75 mg PO DAILY [facility] Last Admin: 07/25/21 09:10 Dose: 75 mg Carisoprodol (Carisoprodol 350 Mg Tab) 350 mg PO 4XD PRN PRN Reason: Pain, Mild (1-3) Diclofenac Sodium (Diclofenac Dr 75 Mg Tab) 75 mg PO BID PRN PRN Reason: Pain, Mild (1-3) Last Admin: 07/22/21 09:18 Dose: 75 mg Duloxetine HCl (Duloxetine 30 Mg Cap) 60 mg PO QDAY [facility] Last Admin: 07/25/21 09:11 Dose: 60 mg Levothyroxine Sodium (Levothyroxine 112 Mcg Tab) 112 mcg PO QAM [facility] Last Admin: 07/24/21 09:06 Dose: 112 mcg Melatonin (Melatonin 5 Mg Tab) 5 mg PO QHS PRN PRN Reason: Sleep Last Admin: 07/24/21 23:10 Dose: 5 mg Olanzapine (Olanzapine 10 Mg Tab) 10 mg PO QDAY [facility] Last Admin: 07/25/21 09:10 Dose: 10 mg Temazepam (Temazepam 15 Mg Cap) 30 mg PO QHS PRN PRN Reason: Sleep Last Admin: 07/24/21 23:10 Dose: 30 mg Tramadol HCl (Tramadol 50 Mg Tab) 50 mg PO BID PRN PRN Reason: Pain, Moderate (4-6) Results - Results Labs/Vitals: Laboratory Last Values WBC 9.6 K/mm3 (4.5-11.0) 07/23/21 00:04 RBC 3.92 M/mm3 (3.65-5.03) 07/23/21 00:04 Hgb 11.6 gm/dl (10.1-14.3) 07/23/21 00:04 Hct 35.3 % (30.3-42.9) 07/23/21 00:04 MCV 90 fl (79-97) 07/23/21 00:04 MCH 30 pg (28-32) 07/23/21 00:04 MCHC 33 % (30-34) 07/23/21 00:04 RDW 14.1 % (13.2-15.2) 07/23/21 00:04 Plt Count 406 K/mm3 (140-440) 07/23/21 00:04 Lymph % (Auto) 24.1 % (13.4-35.0) 07/23/21 00:04 [place] % (Auto) 9.7 % (0.0-7.3) H 07/23/21 00:04 Eos % (Auto) 6.5 % (0.0-4.3) H 07/23/21 00:04 Baso % (Auto) 1.0 % (0.0-1.8) 07/23/21 00:04 Lymph # (Auto) 2.3 K/mm3 (1.2-5.4) 07/23/21 00:04 [place] # (Auto) 0.9 K/mm3 (0.0-0.8) H 07/23/21 00:04 Eos # (Auto) 0.6 K/mm3 (0.0-0.4) H 07/23/21 00:04 Baso # (Auto) 0.1 K/mm3 (0.0-0.1) 07/23/21 00:04 Seg Neutrophils % 58.7 % (40.0-70.0) 07/23/21 00:04 Seg Neutrophils # 5.6 K/mm3 (1.8-7.7) 07/23/21 00:04 Sodium 138 mmol/L (137-145) 07/23/21 00:04 Potassium 4.9 mmol/L (3.6-5.0) 07/23/21 00:04 Chloride 100.1 mmol/L (98-107) 07/23/21 00:04 Carbon Dioxide 21 mmol/L (22-30) L 07/23/21 00:04 Anion Gap 22 mmol/L 07/23/21 00:04 BUN 17 mg/dL (7-17) 07/23/21 00:04 Creatinine 0.9 mg/dL (0.6-1.2) 07/23/21 00:04 Estimated GFR > 60 ml/min 07/23/21 00:04 BUN/Creatinine Ratio 19 % 07/23/21 00:04 Glucose 94 mg/dL (65-100) 07/23/21 00:04 POC Glucose 72 mg/dL (70-105) 07/19/21 15:17 Hemoglobin A1c 5.1 % (4-6) 07/23/21 00:04 Calcium 9.0 mg/dL (8.4-10.2) 07/23/21 00:04 Total Bilirubin < 0.20 mg/dL (0.1-1.2) 07/23/21 00:04 AST 13 units/L (5-40) 07/23/21 00:04 ALT 12 units/L (7-56) 07/23/21 00:04 Alkaline Phosphatase 88 units/L (35-129) 07/23/21 00:04 Total Protein 6.5 g/dL (6.3-8.2) 07/23/21 00:04 Albumin 3.5 g/dL (3.9-5) L 07/23/21 00:04 Albumin/Globulin Ratio 1.2 % 07/23/21 00:04 Triglycerides 89 mg/dL (2-149) 07/23/21 00:04 Cholesterol 182 mg/dL (50-199) 07/23/21 00:04 LDL Cholesterol Direct 99 mg/dL (50-130) 07/23/21 00:04 HDL Cholesterol 64 mg/dL (40-59) H 07/23/21 00:04 Cholesterol/HDL Ratio 2.84 % 07/23/21 00:04 TSH 9.340 mlU/mL (0.270-4.200) H 07/23/21 00:04 Last Vital Signs Temp 98.3 F 07/24/21 19:40 Pulse 73 07/24/21 19:40 Resp 17 07/24/21 19:40 BP 142/79 07/24/21 19:40 Pulse Ox 96 07/24/21 19:40
--- NOTE | 2021-07-26 08:44 | Discharge Summary ---
Providers - Providers Date of Admission: 07/19/21 14:04 Date of discharge: 07/26/21 Attending physician: BOYD VUONG MD 07/19/21 13:14 Consult to Physician [CONS] Routine Comment: Consulting Provider: JAXSON BARFIELD Physician Instructions: Reason For Exam: manage medical conditons Primary care physician: [employer]MENT [employer]PER[employer] Hospitalization Reason for admission: hallucinations Admitting Diagnosis: F22 - DELUSIONAL DISORDERS Condition: Stable Hospital course: The patient was provided inpatient psychiatric treatment with safe and supportive environment, group/individual therapy, psychiatric medication, medication adjustment, adverse effect monitor, medical evaluation, medical barbra atment, social service assessment, social support meeting, placement assessment and psycho-education. The patients mood, cognition, behavior, motivation, compliance to treatment and appreciation on family/social support are improved and stabilized. At the time of discharge, the patient had no suicidal ideas, no homicidal ideas, no aggressive thoughts, no endangering behavior and no debilitating adverse effects. The patient agreed on the treatment plan, understood the risk, benefit, alternative treatment, potential consequence of no treatment, and gave informed consent. Disposition: 01 HOME / SELF CARE / HOMELESS Time spent for discharge: 35 Allergies/Adverse Reactions: Allergies No Known Allergies Allergy (Verified 07/19/21 19:15) Vital Signs: Last Vital Signs Temp 98.5 F 07/25/21 20:00 Pulse 89 07/25/21 20:00 Resp 16 07/25/21 20:00 BP 107/62 07/25/21 20:00 Pulse Ox 94 07/25/21 20:00 Last Lab: Laboratory Last Values WBC 9.6 K/mm3 (4.5-11.0) 07/23/21 00:04 RBC 3.92 M/mm3 (3.65-5.03) 07/23/21 00:04 Hgb 11.6 gm/dl (10.1-14.3) 07/23/21 00:04 Hct 35.3 % (30.3-42.9) 07/23/21 00:04 MCV 90 fl (79-97) 07/23/21 00:04 MCH 30 pg (28-32) 07/23/21 00:04 MCHC 33 % (30-34) 07/23/21 00:04 RDW 14.1 % (13.2-15.2) 07/23/21 00:04 Plt Count 406 K/mm3 (140-440) 07/23/21 00:04 Lymph % (Auto) 24.1 % (13.4-35.0) 07/23/21 00:04 [place] % (Auto) 9.7 % (0.0-7.3) H 07/23/21 00:04 Eos % (Auto) 6.5 % (0.0-4.3) H 07/23/21 00:04 Baso % (Auto) 1.0 % (0.0-1.8) 07/23/21 00:04 Lymph # (Auto) 2.3 K/mm3 (1.2-5.4) 07/23/21 00:04 [place] # (Auto) 0.9 K/mm3 (0.0-0.8) H 07/23/21 00:04 Eos # (Auto) 0.6 K/mm3 (0.0-0.4) H 07/23/21 00:04 Baso # (Auto) 0.1 K/mm3 (0.0-0.1) 07/23/21 00:04 Seg Neutrophils % 58.7 % (40.0-70.0) 07/23/21 00:04 Seg Neutrophils # 5.6 K/mm3 (1.8-7.7) 07/23/21 00:04 Sodium 138 mmol/L (137-145) 07/23/21 00:04 Potassium 4.9 mmol/L (3.6-5.0) 07/23/21 00:04 Chloride 100.1 mmol/L (98-107) 07/23/21 00:04 Carbon Dioxide 21 mmol/L (22-30) L 07/23/21 00:04 Anion Gap 22 mmol/L 07/23/21 00:04 BUN 17 mg/dL (7-17) 07/23/21 00:04 Creatinine 0.9 mg/dL (0.6-1.2) 07/23/21 00:04 Estimated GFR > 60 ml/min 07/23/21 00:04 BUN/Creatinine Ratio 19 % 07/23/21 00:04 Glucose 94 mg/dL (65-100) 07/23/21 00:04 POC Glucose 72 mg/dL (70-105) 07/19/21 15:17 Hemoglobin A1c 5.1 % (4-6) 07/23/21 00:04 Calcium 9.0 mg/dL (8.4-10.2) 07/23/21 00:04 Total Bilirubin < 0.20 mg/dL (0.1-1.2) 07/23/21 00:04 AST 13 units/L (5-40) 07/23/21 00:04 ALT 12 units/L (7-56) 07/23/21 00:04 Alkaline Phosphatase 88 units/L (35-129) 07/23/21 00:04 Total Protein 6.5 g/dL (6.3-8.2) 07/23/21 00:04 Albumin 3.5 g/dL (3.9-5) L 07/23/21 00:04 Albumin/Globulin Ratio 1.2 % 07/23/21 00:04 Triglycerides 89 mg/dL (2-149) 07/23/21 00:04 Cholesterol 182 mg/dL (50-199) 07/23/21 00:04 LDL Cholesterol Direct 99 mg/dL (50-130) 07/23/21 00:04 HDL Cholesterol 64 mg/dL (40-59) H 07/23/21 00:04 Cholesterol/HDL Ratio 2.84 % 07/23/21 00:04 TSH 9.340 mlU/mL (0.270-4.200) H 07/23/21 00:04 Core Measure Documentation - Palliative Care Palliative Care/ Comfort Measures: Not Applicable - Core Measures Any of the following diagnoses?: none Exam - Constitutional Vitals: Temp Pulse Resp BP Pulse Ox 98.5 F 89 16 107/62 94 07/25/21 20:00 07/25/21 20:00 07/25/21 20:00 07/25/21 20:00 07/25/21 20:00 General appearance: Present: no acute distress - EENT Eyes: Present: EOM intact ENT: hearing intact, clear oral mucosa - Neck Neck: Present: supple, normal ROM - Respiratory Respiratory effort: normal Plan Activity: advance as tolerated Weight Bearing Status: Weight Bear as Tolerated Care Plan Goals: Maintain good and stable mental health Plan of Treatment: The patient should be compliant with medications, not to use drugs and not to drink alcohol.The patient understands that if suicidal ideas, homicidal ideas, or any endangering thoughts/behavior arise, they should immediately seek for emergent assistance including but not limited to crisis hot line and emergency room. Follow up with outpatient Psychiatrist and PCP within 7 - 14 days of discharge. Assessment: Delusional Disorder Follow up with: PRIMARY CARE,MD [Primary Care Provider] - 7 Days Prescriptions: Melatonin [Melatonin 5MG TAB] 5 mg PO QHS PRN #30 tablet PRN Reason: Sleep OLANzapine [Zyprexa] 10 mg PO QDAY #30 tablet
[2021-07-26 09:43] VITALS: BP 98/50
[2021-07-26] MEDS: LEVOTHYROXINE 112 MCG TAB PO SCH (09:44)
[2021-07-26] MEDS: AMITRIPTYLINE 25 MG TAB PO SCH (09:44)
[2021-07-26] MEDS: DULoxetine 30 MG CAP PO SCH (09:44)
== END 2021-07-26 10:40 | disposition home or self-care (01) | DRG 884 ==
LOC: 3A 14:56 → UNDOADMIN 14:56 → 5A 07-19 14:04
PROVIDERS: ADMIT Psychiatry & Neurology Psychiatry; ATTEND Psychiatry & Neurology Psychiatry
DX: F01.51 Vascular dementia, unspecified severity, with behavioral disturbance (principal); F32.3 Major depressive disorder, single episode, severe with psychotic features; I67.2 Cerebral atherosclerosis; E66.9 Obesity, unspecified; Z68.38 Body mass index [BMI] 38.0-38.9, adult; I10 Essential (primary) hypertension; F41.9 Anxiety disorder, unspecified; F32.9 Major depressive disorder, single episode, unspecified; Z20.822 Contact with and (suspected) exposure to COVID-19; Z90.710 Acquired absence of both cervix and uterus; Z90.49 Acquired absence of other specified parts of digestive tract; Z82.49 Family history of ischemic heart disease and other diseases of the circulatory system
CPT/HCPCS: 36415; 80053; 80061; 82962; 83036; 84443; 85025; G0378